=== PATIENT | female | born 1960 | race Caucasian/White ===

== ENCOUNTER 2023-03-29 10:22 | Emergency (ER) | payer OTHER, SELFPAY ==
[2023-03-29 10:24] VITALS: BP 148/89; PULSE 65; RESP 18; TEMP 36.1; O2SAT 99
--- NOTE | 2023-03-29 10:44 | RAD_ITS ---
INDICATION: Trauma EXAMINATION/TECHNIQUE: X-RAY - LEFT XR Ankle Min 3 Views 3 VIEWS COMPARISON: FINDINGS: SOFT TISSUES: Moderate soft tissue swelling adjacent to the lateral malleolus, mild soft tissue swelling adjacent to the medial malleolus. No radiopaque foreign body. BONES/JOINTS: Moderate posterior and plantar calcaneal spurring. No acute fracture or subluxation.. Normal alignment. Preservation of the joint space.. No sclerotic or destructive changes observed. RAD/Ankle min 3 Views IMPRESSION: Moderate lateral and mild medial malleolar soft tissue swelling. Moderate posterior and plantar calcaneal spurring. Electronically Signed: Norberto Maharaj MD at 11:18 EDT ,
--- NOTE | 2023-03-29 10:46 | ED.VIS.FALL ---
HPI HPI - Fall History of Present Illness Chief Complaint: Fall Informant: patient and spouse/S.O. Narrative Narrative: Patient presents after falling at home and hurting her left ankle. Patient states she was going down steps she just missed a step and rolled her left ankle. She states she bumped the back of her head just slightly. But she did not lose consciousness. She is on no medicine including no anticoagulation. She has no headache. She has no numbness or tingling. She is acting normally per her . The only thing that hurts is her left ankle. It is very painful if she puts weight on it. Does not radiate further up the leg. PFSH PFSH Allergy/AdvReac Type Severity Reaction Status Date / Time celery Allergy Intermediate Hives Verified 03/29/23 10:23 codeine AdvReac Intermediate Other Verified 03/29/23 10:23 Social History Smoking Status: Never smoker ROS ROS ED Constitutional Constitutional ED: Denies fever(s) Eyes Eyes: Denies blurry vision, change in vision or diplopia ENT ENT ED: Denies rhinorrhea Cardiovascular Cardiovascular: Denies chest pain or palpitations Respiratory/Chest Respiratory/Chest: Denies dyspnea Gastrointestinal Gastrointestinal: Denies nausea or vomiting Musculoskeletal Musculoskeletal: Reports arthralgias; Denies back pain, myalgias or neck pain Integumentary Denies Abrasions or rash Neurologic Neurologic: Denies headache(s), paresthesias or weakness Hematologic/Lymphatic Hematologic/Lymphatic: Denies easy bleeding or easy bruising Allergic/Immunologic Allergic/Immunologic ED: Denies urticaria EXAM Physical Exam Narrative Exam Narrative: General: Patient awake alert appropriate consistent informant. HEENT: No obvious trauma. No bleeding or laceration. No facial injury abrasions or tenderness. Eyes full range of motion with normal pupils. Neck is supple no pain with motion or palpation. Lungs are clear. Heart is regular distal pulses are normal. Abdomen is nontender. No pain in the cervical thoracic or lumbar spine. Extremities: There is no swelling at this time. But she does have tenderness mostly to the lateral malleolus inferiorly and anteriorly. A little bit of tenderness to the posterior aspect of the medial malleolus. No fifth metatarsal midfoot or forefoot tenderness. No calcaneus tenderness with compression. Achilles is intact by both palpation and Frey test. There is no tenderness further up the tibia or up the fibula all the way to the knee. I am not seeing bruising at this time although there is a hint of lateral swelling. No abrasions. Const Vital Signs: 03/29/23 10:24 03/29/23 11:22 Temperature 96.9 F L Temperature Source Temporal Pulse Rate 65 Respiratory Rate 18 Respiratory Effort Normal Respiratory Depth Normal Respiratory Pattern Normal Blood Pressure 148/89 H Blood Pressure Mean 108 Pulse Ox 99 Oxygen Delivery Method Room Air Room Air MDM MDM MDM Narrative Medical decision making narrative: My independent interpretation of the three-view x-ray of the patient's left ankle show some arthritic changes but no acute fracture. Mortise appears intact. Final reading shows soft tissue swelling and calcaneal spurring. We will place the patient in a stirrup splint. She should ice and elevate for the first few days at least. If it is still hurting in 1 to 2 weeks she should have repeat imaging done. If she develops further swelling pain of the legs or other symptoms she should return. Radiography Diagnostic Testing: Clinical Impression(s) from Imaging Studies Ankle X-Ray 03/29/23 10:44 IMPRESSION: Moderate lateral and mild medial malleolar soft tissue swelling. Moderate posterior and plantar calcaneal spurring. Electronically Signed: Norberto Maharaj MD at 11:18 EDT , Discharge Plan Triage Chief Complaint: Fall ED Provider: Bo Tripathi Dx/Rx/DC Orders Clinical Impression: Fall on steps, Sprain of ligament of left ankle Instructions: ED Ankle Sprain (Adult) Primary Care Provider: Norberto Meadows Referrals: Randall Red MD [Med Staff - Active Staff] - 3-5 Days if not improving Activity Restrictions/Additional Instructions: Ice and elevate. Disposition Disposition: Home, Self Care
[2023-03-29 11:22] VITALS: BMI 35.6
== END 2023-03-29 11:51 | disposition home or self-care (01) ==
LOC: ED 11:10
PROVIDERS: Emergency Provider Emergency Medicine; PCP Family Medicine; Visit Provider Emergency Medicine
DX: S93.402A Sprain of unspecified ligament of left ankle, initial encounter (principal); W10.9XXA Fall (on) (from) unspecified stairs and steps, initial encounter; Y92.009 Unspecified place in unspecified non-institutional (private) residence as the place of occurrence of the external cause
CPT/HCPCS: 73610; 99283